=== PATIENT | female | born 1985 | race American Indian/Alaskan Native ===

== ENCOUNTER 2017-06-03 03:36 | Emergency (ER) | payer SELFPAY ==
[2017-06-03 03:41] VITALS: BP 170/110
== END 2017-06-03 04:00 | disposition left against medical advice (07) ==
LOC: ED 03:36
DX: K08.89 Other specified disorders of teeth and supporting structures (principal); Z53.21 Procedure and treatment not carried out due to patient leaving prior to being seen by health care provider